=== PATIENT | male | born 1985 | race Caucasian/White ===

== ENCOUNTER → 2016-10-31 | Outpatient (CLI) | payer OTHER | LOC: RAD 09:01 | DX: S33.6XXA Sprain of sacroiliac joint, initial encounter (principal); X58.XXXA Exposure to other specified factors, initial encounter ==

== ENCOUNTER 2016-11-08 08:00 | Outpatient (RCR) | payer OTHER | END 2016-11-13 11:48 | disposition home or self-care (01) | LOC: PT 08:00 | DX: K45.8 Other specified abdominal hernia without obstruction or gangrene (principal) ==

== ENCOUNTER 2017-08-12 16:43 | Emergency (ER) | payer OTHER ==
[~2017-08-12] VITALS: Ht 180.3 cm; Wt 102.3 kg
[2017-08-12] MEDS ORDERED: FLONASE ALLERG9.9 ML NS (16:54)
[2017-08-12] MEDS ORDERED: NORCO 325 MG-51 TA1 PO (18:23)
[2017-08-12 18:40] VITALS: BP 153/94
== END 2017-08-12 18:43 | disposition home or self-care (01) ==
LOC: ED 16:43
DX: S06.0X0A Concussion without loss of consciousness, initial encounter (principal); S01.01XA Laceration without foreign body of scalp, initial encounter; W22.8XXA Striking against or struck by other objects, initial encounter; Y92.69 Other specified industrial and construction area as the place of occurrence of the external cause
CPT/HCPCS: J2270

== ENCOUNTER 2017-08-21 08:11 | Emergency (ER) | payer OTHER ==
[~2017-08-21 08:11] MED LIST: FLONASE ALLERG9.9 ML NS; NORCO 325 MG-51 TA1 PO
[2017-08-21 08:20] VITALS: BP 139/104
== END 2017-08-21 08:20 | disposition home or self-care (01) ==
LOC: ED 08:11
DX: Z48.02 Encounter for removal of sutures (principal)

== ENCOUNTER 2019-12-28 08:00 | Outpatient (RCR) | payer OTHER ==
[2019-12-08 15:30] VITALS: BP 148/98
[~2019-12-28 08:00] MED LIST changes: +CYCLOBENZAPRINE10 M1 PO; +EC-NAPROXEN500 MG PO; +MEDROL DOSEPAK4 MG PO; +NAPROXEN500 MG PO
== END 2019-12-28 08:30 | disposition still patient (30) ==
LOC: PT 08:00
DX: M54.41 Lumbago with sciatica, right side (principal); G89.29 Other chronic pain

== ENCOUNTER → 2020-08-06 | Outpatient (CLI) | payer OTHER ==
[2019-12-08 15:30] VITALS: BP 148/98
== END ==
LOC: RAD 10:07
DX: M25.572 Pain in left ankle and joints of left foot (principal)

== ENCOUNTER 2024-03-30 10:46 | Emergency (ER) | payer BC ==
[~2024-03-30] VITALS: Ht 180.3 cm; Wt 90.9 kg
[~2024-03-30 10:46] MED LIST changes: +LORAZEPAM0.5 M1 PO; +TOPCARE OMEPRAZ20 MG PO; +ZOFRAN ODT4 MG PO
[2024-03-30] MEDS ORDERED: LOSARTAN POTASS1 TA4 PO (11:00)
[2024-03-30] MEDS ORDERED: TRAMADOL 50 MG TAB PO (11:00)
[2024-03-30] MEDS ORDERED: MELOXICAM15 MG PO (11:00)
[2024-03-30] MEDS ORDERED: PREDNISONE20 M1 PO (11:51)
[2024-03-30 12:00] VITALS: BP 148/92
== END 2024-03-30 12:00 | disposition home or self-care (01) ==
LOC: ED 10:46
DX: M48.07 Spinal stenosis, lumbosacral region (principal)